=== PATIENT | male | born 1960 | race Caucasian/White ===

== ENCOUNTER 2023-03-20 08:28 | Observation (INO) | payer OTHER, SELFPAY ==
[2023-03-20] VITALS (84 sets, daily range): BP systolic 105–175; BP diastolic 58–107; PULSE 50–95; RESP 2–24; TEMP 36.4–36.8; O2SAT 84–100; BMI 29.9; BMI 31.1
--- NOTE | 2023-03-20 08:36 | ED_ITS ---
HPI - General Adult General Chief complaint: Chest Pain Stated complaint: CHEST PAIN Time Seen by Provider: 03/20/23 08:35 History of Present Illness HPI narrative: Patient is a 63-year-old male who is presenting to the Emergency Room with chief complaint of left-sided chest heaviness, pressure this started in the left parasternal area and radiating across the left side of his chest underneath his left breast. This did not radiate into his neck, jaw, but he did have pain going down his left arm as well. Patient had a heart attack 2 years ago in [place]. Patient had a cardiac catheter with a few stents placed. Patient was in significant. Patient's patient service coordinator is in [place], his PCP is in [place]. Patient does take a blood thinner, he does not know what blood Thinner he takes. Patient does not know his medication list. 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 Patient has no history of blood clots. Patient has no bowel pain, nausea vomiting. Patient does have lower extremity swelling, this is new in the past week. Patient states he is having a hard time putting his boots on. He has no pain in the posterior aspects of his legs, there is little bit more swelling in the left leg than the right but fairly equal. Patient has no fever or chills. Patient quit smoking 2 years ago. Patient is compliant with his medication. Patient was taking a delivery somewhere today, patient was trying to get out of his semitruck. Patient stated that he almost fell, he was having the chest pain, and some weakness in his legs along with the swelling. Patient called 911 and was brought to the Emergency Room from a business where his semitruck tractor- trailer is currently. Patient has not used smoking in the past 2 years. . All systems are negative except as noted/marked. All systems reviewed and otherwise negative. . Nurses note and vital signs reviewed and patient is not hypoxic. General: The patient appears well and in no apparent distress. Patient is resting comfortably on cart. Patient is not toxic, lethargic, or listless Skin: Warm, dry, grayish coloration to skin, pt states this is normal for him. no pallor noted. There is no rash noted. No petechiae, purpura. Head: Normocephalic, atraumatic Eye: Normal conjunctiva, no drainage, EOMI. PERRL Ears, Nose, Mouth, and Throat: oral mucosa is moist. Nares patent. Mouth without vesicles. Cardiovascular: Regular Rate and Rhythm, no murmur, gallop, rub. No reproducible tenderness to palpation to the anterior, lateral, posterior chest wall. Respiratory: Patient is in no distress, no accessory muscle use, lungs are clear to auscultation, no wheezing, rales or rhonchi Back: non-tender, no CVA tenderness bilaterally to percussion. No CT LS midline pain GI: soft, Obese, no tenderness to palpation, no masses appreciated. No rebou nd, guarding, or rigidity noted. No flank pain bilateral, No distention. No midepigastric tenderness to palpation. Musculoskeletal: Patient has full range of motion of all of the extremities, no motor, sensory, or focal neurological deficits. 1+ pitting edema to bilateral lower extremities. Patient has no pain to the posterior aspect of bilateral thighs, popliteal fossa, or calves. Neurological: A&O x3, normal speech Psychiatric: Cooperative Related Data Home Medications Medication Instructions Recorded Confirmed Unobtainable 03/20/23 03/20/23 Allergies Allergy/AdvReac Type Severity Reaction Status Date / Time No Known Drug Allergies Allergy Verified 03/20/23 08:37 [facility] Social History Smoking status: Former smoker Exam Constitutional Vital Signs, click to edit/add: Last Vital Signs Temp 98 F 03/20/23 08:32 Pulse 56 L 03/20/23 10:37 Resp 14 03/20/23 10:37 BP 138/93 H 03/20/23 10:37 Pulse Ox 99 03/20/23 10:37 O2 Del Method Room Air 03/20/23 10:37 Course Vital Signs Vital signs: Vital Signs Temperature 98 F 03/20/23 08:32 Pulse Rate 77 03/20/23 08:32 Respiratory Rate 24 03/20/23 08:32 Blood Pressure 156/83 H 03/20/23 08:32 Pulse Oximetry 98 03/20/23 08:32 Oxygen Delivery Method Room Air 03/20/23 08:32 Temperature 98 F 03/20/23 08:32 Pulse Rate 56 L 03/20/23 10:37 Respiratory Rate 14 03/20/23 10:37 Blood Pressure 138/93 H 03/20/23 10:37 Pulse Oximetry 99 03/20/23 10:37 Oxygen Delivery Method Room Air 03/20/23 10:37 Medical Decision Making MDM Narrative Medical decision making narrative: Patient received 4 baby aspirin and 1 nitroglycerin prior to arrival. Patient's had 2 sets of cardiac enzymes are negative. EKG has showed no acute changes. Patient did have nitro paste placed. Patient will be admitted for observation secondary to his cardiac history, risk factors and his story. Patient has a heart score of 4. 1 point for story, one point for age, 2 points for history. Patient will be admitted for observation. Patient's patient service coordinator is [place], pt PCP is in [place]. Patient 2 sets of troponins, x-ray, lab work showed no acute findings. Patient has been on the playground monitor. The past 4 hours,Patient's had no acute changes. Critical care time 35 minutes exclusive from separate billable procedures that were performed. The following was considered in the determination of critical care but not limited to the level of medical decision making, intensive cardiac and/or respiratory monitoring, frequent vital sign monitoring, evaluation of laboratory studies, evaluation of radiographic studies, oxygen monitoring, and constant monitoring and speaking to family at bedside Lab Data Lab results reviewed: Yes I reviewed the patient's lab results Labs: Lab Results 03/20/23 03/20/23 Range/Units 09:03 10:32 WBC 5.1 (4.0-11.0) 10^3/uL RBC 3.95 L (4.70-6.10) 10^6/uL Hgb 12.3 L (14.0-18.0) g/dL Hct 37.6 L (42.0-54.0) % MCV 95.2 H (80.0-94.0) fL MCH 31.1 (25.9-34.0) pg MCHC 32.7 (29.9-35.2) g/dL RDW 13.3 (11.0-15.0) % Plt Count 151 (150-450) 10^3/uL MPV 11.0 (9.5-13.5) fL Seg Neuts % (Manual) 65.0 Band Neutrophils % 1.0 (0-5) % Lymphocytes % (Manual) 25.0 (20.5-60.0) % Monocytes % (Manual) 6.0 (1.7-12.0) % Eosinophils % (Manual) 3.0 (0.9-7.0) % Basophils % (Manual) 0.0 L (0.2-2.0) % Neutrophils # (Manual) 3.31 (1.4-6.5) 10^3/uL Band Neutrophils # 0.1 (0.0-0.3) 10^3/uL Lymphocytes # (Manual) 1.27 (1.20-3.80) 10^3/uL Monocytes # (Manual) 0.30 (0.30-0.80) 10^3/uL Eosinophils # (Manual) 0.15 (0.00-0.70) 10^3/uL Basophils # (Manual) 0.00 (0.00-0.10) 10^3/uL PT 11.4 (9.0-11.6) sec INR 1.08 Sodium 140 (136-145) mmol/L Potassium 3.4 L (3.5-5.1) mmol/L Chloride 104 (98-107) mmol/L Carbon Dioxide 26.7 (21.0-32.0) mmol/L Anion Gap 12.7 BUN 17.0 (7.0-18.0) mg/dL Creatinine 1.45 H (0.70-1.30) mg/dL Est GFR ( Amer) 60 (>=60) Est GFR (Non-Af Amer) 49 L (>=60) BUN/Creatinine Ratio 11.7 Glucose 109 H (74-106) mg/dL Calcium 8.5 (8.5-10.1) mg/dL Total Bilirubin 0.7 (0.2-1.0) mg/dL AST 72 H (15-37) U/L ALT 76 H (16-63) U/L Alkaline Phosphatase 78 (46-116) U/L Troponin I High Sens 8.1 9.4 (4.0-76.1) pg/mL NT-Pro-B Natriuret Pep 205.0 (<=900.0) pg/mL Total Protein 7.3 (6.4-8.2) g/dL Albumin 4.1 (3.4-5.0) g/dL Globulin 3.2 g/dL Albumin/Globulin Ratio 1.3 Lipase 25.0 (16.0-77.0) U/L ECG Data Attestation: I personally reviewed and interpreted this ECG as follows: (EKG interpretation. Normal sinus rhythm at 71 beats a minute. Normal axis deviation. No acute ST elevation, no acute ectopy. QTC of 361.) Discharge Plan Discharge Chief Complaint: Chest Pain Clinical Impression: Edema, peripheral, Chest pain Patient Disposition: Home, Self-Care Condition: Fair Prescriptions / Home Meds: No Action Unobtainable Stand Alone Forms: Portal Instructions Referrals: Physician,Non-Staff, MD [Primary Care Provider] - 1 week
--- NOTE | 2023-03-20 08:37 | ECG_ITS ---
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
--- NOTE | 2023-03-20 09:00 | CT_ITS ---
The [address] [address] Patient Name: ANTHONY MORTON MRN: [id number] date: 1960 Sex: M Assigned Patient Location: ER Current Patient Location: ER Accession/Order Number: [id number] Exam Date: 03/20/2023 09:57 Report Date: 03/20/2023 10:58 At the request of: BRYAN NEWMAN Procedure: CT angio chest CT angio chest: 03/20/2023 9:57 AM EDT CLINICAL HISTORY: 63 years old Male with sob, cp. TECHNIQUE: CT angio chest was performed with axial CT images through the thorax as well as sagittal, coronal and oblique reformations also obtained after intravenous administration of intravenous contrast. COMPARISON: None FINDINGS: There are no filling defects in the main central pulmonary arteries. The heart is not enlarged. There is no pericardial effusion. No enlarged mediastinal or perihilar lymph nodes are noted. The lungs are clear. There is no pneumothorax or pleural effusion. Small esophageal hiatal hernia. Hepatic cyst. The osseous structures are unremarkable. CT/CT angio chest IMPRESSION: No pulmonary embolus. Electronically authenticated by: ASHLEIGH BAUTISTA Date: 03/20/2023 10:58
--- NOTE | 2023-03-20 09:11 | PC.NURSE ---
States left sided chest pain off and on. Gets up to an [address] berger. Orders obtained.
[2023-03-20] MEDS: NITROGLYCERIN 2% 1 GRAM PACKET 1 GM TD (09:17)
[2023-03-20 09:23] LABS: Hematocrit 37.6 % (42.0-54.0); Hemoglobin 12.3 g/dL (14.0-18.0); Mean Corpuscular HGB Conc 32.7 g/dL (29.9-35.2); Mean Corpuscular Hemoglobin 31.1 pg (25.9-34.0); Mean Corpuscular Volume 95.2 fL (80.0-94.0); Platelet Count 151 10^3/uL (150-450); Red Blood Count 3.95 10^6/uL (4.70-6.10); White Blood Count 5.1 10^3/uL (4.0-11.0)
[2023-03-20 09:26] LABS: Red Cell Distribution Width 13.3 % (11.0-15.0)
[2023-03-20 09:29] LABS: INR 1.08; Prothrombin Time 11.4 sec (9.0-11.6)
[2023-03-20 09:37] LABS: Alanine Aminotransferase 76 U/L (16-63); Albumin Globulin Ratio 1.3; Albumin Level 4.1 g/dL (3.4-5.0); Alkaline Phosphatase 78 U/L (46-116); Anion Gap 12.7; Aspartate Amino Transferase 72 U/L (15-37); BUN Creatinine Ratio 11.7; Bilirubin Total 0.7 mg/dL (0.2-1.0); Calcium 8.5 mg/dL (8.5-10.1); Carbon Dioxide 26.7 mmol/L (21.0-32.0); Chloride 104 mmol/L (98-107); Estimated GFR (African America 60 (>=60); Estimated GFR (Non-African Ame 49 (>=60); Globulin 3.2 g/dL; Glucose 109 mg/dL (74-106); Potassium 3.4 mmol/L (3.5-5.1); Sodium 140 mmol/L (136-145); Total Protein 7.3 g/dL (6.4-8.2); Troponin I High Sensitivity 8.1 pg/mL (4.0-76.1)
[2023-03-20 09:41] LABS: Band Neutrophils Absolute 0.1 10^3/uL (0.0-0.3); Eosinophils Absolute Manual 0.15 10^3/uL (0.00-0.70); Lymphocytes Absolute Manual 1.27 10^3/uL (1.20-3.80); Segmented Neut Absolute Manual 3.31 10^3/uL (1.4-6.5)
[2023-03-20 11:14] LABS: Troponin I High Sensitivity 9.4 pg/mL (4.0-76.1)
--- NOTE | 2023-03-20 14:01 | CA_ITS ---
Patient: ANTHONY MORTON Exam Date: 03/20/2023 : 1960 Gender:M Ordering : GORGE GREER Admission #: [id number] Family : Pablo Cote . Order #: [id number] CLICK HERE TO VIEW EXAM ECHOCARDIOGRAM REPORT PROCEDURE: CA ECHO DOPPLER COMPLETE INDICATIONS: Chest pain, h/o NC - PTCA COMPARISON: None. DESCRIPTION: COMPLETE ECHOCARDIOGRAM Real-time transthoracic echocardiography with 2D, M-mode, spectral and color flow Doppler performed. QUALITY: Technical quality was good. LEFT VENTRICLE: Normal chamber size. Mild concentric left ventricular hypertrophy. Systolic function is difficult to assess but appears to be moderately to severely reduced. There is global hypokinesis. LV EF: Moderately to severely reduced left ventricular ejection fraction, (25-30%). DIASTOLIC: Grade II diastolic dysfunction. ATRIAL SEPTUM: LEFT ATRIUM: Normal chamber size. RIGHT ATRIUM: Normal chamber size. RIGHT VENTRICLE: Normal chamber size. Normal right ventricular systolic function. TRICUSPID VALVE: Normal mobility and thickness. No stenosis with no regurgitation. Unable to assess right-sided pressures due to lack of measurable tricuspid regurgitation. MITRAL VALVE: Normal mobility and thickness. No evidence of mitral valve stenosis. There is no mitral annular calcification. Trivial mitral regurgitation. AORTIC VALVE: Normal trileaflet appearance. No visible sclerosis. Normal leaflet mobility. No evidence of aortic valve stenosis. No aortic regurgitation. AORTIC ROOT: Normal diameter and appearance. PULMONIC VALVE: Normal thickness and mobility. No stenosis. Trivial regurgitation. PERICARDIUM: Trivial pericardial effusion. IVC: Collapses with inspirations. PLEURA: CONCLUSION: 1. Left ventricular systolic function is difficult to assess but appears to be moderately to severely reduced. There is global hypokinesis. LVEF is estimated at 25 to 30%. 2. Normal right ventricular size and systolic function. 3. No significant valvular dysfunction. 4. Unable to assess right-sided pressures due to lack of measurable tricuspid regurgitation. 5. Trivial pericardial effusion. Adult Echocardiography Procedure Report Left Ventricle LVEDD (3.7 - 5.6 cm): 5.18 cm LVESD (2.2 - 4.0 cm): 3.55 cm LVIVS thickness (0.6 - 1.2 cm): 1.29 cm LVPW thickness (0.5 - 1.0 cm): 1.13 cm e': 0.06 m/s E - e': 7.19 LVOT Max Gradient: 0.99 mm[Hg] LVOT Area (cm2): 0.50 m/s Peak Velocity (LVOT): 0.50 m/s LVOT Diameter 2.21 cm Left Atrium LA Volume Index (2D A2C): 28.54 ml/m2 Left Atrium Systolic Dimension: 3.70 cm Mitral Valve MV E to A Ratio: 1.23 Mitral Valve A-Wave Peak Velocity: 0.36 m/s Mitral Valve E-Wave Peak Velocity: 0.44 m/s Right Ventricle Aorta AO Root Diam: 3.30 cm Ascending Ao Diam: 2.87 cm Aortic Valve AoV Area (Peak Man): 2.72 cm2, 2.72 cm2 Peak Velocity(Antegrade Flow): 0.70 m/s Peak Gradient(Antegrade Flow): 1.98 mm[Hg] Tricuspid Valve Pulmonic Valve Peak Velocity: 0.72 m/s Peak Gradient: 2.19 mm[Hg], 1.94 mm[Hg] Right Atrium Right Atrium Systolic Pressure: 37.55 ml, 37.55 ml Dictated by: Mook Lockett M.D. on 03/20/2023 at 17:45 Approved by: Mook Lockett M.D. on 03/20/2023 at 17:49
[2023-03-20 15:57] LABS: Troponin I High Sensitivity 11.2 pg/mL (4.0-76.1)
[2023-03-20] MEDS: NITROGLYCERIN IN 5 % DEXTROSE 50 MG/250 ML INFUS..BTL IV (17:06)
[2023-03-20] MEDS: FUROSEMIDE 40 MG/4 ML VIAL IVP (17:15)
[2023-03-20] MEDS: HEPARIN SODIUM (PORCINE) 5,000 UNIT/ML VIAL 5000 UNIT SUBQ (17:19)
[2023-03-20] MEDS: CARVEDILOL 6.25 MG TABLET PO (17:19)
--- NOTE | 2023-03-20 17:55 | P.HP_ITS ---
Patient seen and examined at 2010 hrs. on 03/20/2023 Charting by nurse practitioner as well as diagnoses and physical examination reviewed. Agree with input with the exception of With his stability and chest pain resolved will DC the nitro drip. Try him on oral nitroglycerin. If that is effective then he can possibly be discharged in the a.m.: H&P: HPI History of Present Illness Chief complaint: CHEST PAIN Narrative: Date/time of exam: 03/20/23 1520 This is a 63-year-old male patient with a past medical history as outlined below including NSTEMI in May 2021 in [facility] with PCI and stent placement, HTN, hypothyroidism, BPH; who presented to the ED complaining of acute chest pain with abrupt onset while at work. The patient reports sudden onset of substernal stabbing, tight chest pain with accompanying dyspnea and shortness of breath. He reports approximately 1 month of increased BLE swelling. He denies any nausea and vomiting, palpitations, abdominal pain, or any other acute complaint. Work-up in the ED included a CTA of the chest and no PE was identified. His EKG showed sinus rhythm with old anterior MT changes. He has mild elevation of his creatinine and decreased EGFR of unknown chronicity. Serial troponins in the ED have been negative x2. BNP was within normal limits at 205. He is being admitted to the hospitalist service in observation under Dr. Cote for further cardiac work up. At the time of my exam the patient is resting comfortably in bed in the ICU. He reports that his chest discomfort has resolved after he received aspirin and nitroglycerin in the ED. He does report faint episodic twinges of the precordial chest wall but is otherwise asymptomatic at this time. He is stable on room air and denies shortness of breath. A 2D echo has already been obtained and this reveals significant HFrEF with an EF of 20 to 25% suspected although final cardiology interpretation is still pending. In addition the patient has significant wall motion abnormalities with minimal apical activity in the inferior and lateral zarate. The patient admits to stopping taking his medications since last August. He does not check his blood pressure at home. He states he quit smoking when he had his MT in and has not taken an alcohol at all since the . The patient and his have been updated on the preliminary results of the 2D echo. He will be initiated on a nitroglycerin drip and be given bolus Lasix dosing. Low threshold to change his admission to an inpatient or transfer to a tertiary care facility pending clinical course as we do not have cardiology available in this facility over the weekend. Review of Systems ROS Status of ROS 10 or more systems reviewed and unremarkable except as noted in history and below [facility] Medical History (Updated 03/20/23 @ 18:07 by Kimi Meneses NP) Bladder spasm ?N32.89 - Other specified disorders of bladder (ICD-10) BPH (benign prostatic hyperplasia) ?N40.0 - Benign prostatic hyperplasia without lower urinary tract symptoms (ICD-10) Former cigarette smoker ?Z87.891 - Personal history of nicotine dependence (ICD-10) Heart attack ?I21.9 - Acute myocardial infarction, unspecified (ICD-10) High cholesterol ?E78.00 - Pure hypercholesterolemia, unspecified (ICD-10) Hypothyroidism ?E03.9 - Hypothyroidism, unspecified (ICD-10) Surgical History (Updated 03/20/23 @ 12:58 by Emily White RN) History of heart artery stent ?Z95.5 - Presence of coronary angioplasty implant and graft (ICD-10) Family History (Updated 03/20/23 @ 13:00 by Emily White RN) Father Family history of CHF (congestive heart failure) Family history of COPD (chronic obstructive pulmonary disease) Family history of cancer Family history of diabetes mellitus Family history of hypertension Family history of myocardial infarction Social History (Updated 03/20/23 @ 13:03 by Emily White RN) Within the past year, how often did you have a drink containing alcohol: never Within the past year, how often did you have six or more drinks on one occasion: never Score interpretation: A score less than 4 is consistent with normal alcohol consumption. Smoking status: Former smoker Non-prescribed substance use: denies use Previous occupational history: armored truck driver Highest level of school completed/degree received: 12th grade, no diploma Are you now , , , , never or living with a partner: In a typical week, how many times do you talk on the telephone with family, friends, or neighbors: 3 or more times per week How often do you get together with friends or relatives: once per week How often do you attend voodoo or taoism services: never Do you belong to any clubs or organizations such as voodoo groups unions, fraternal or athletic groups, or school groups: no Total score: 1 Score interpretation: A score of less than or equal to 1 indicates the most socially isolated. Little interest or pleasure in doing things: not at all Feeling down, depressed, or hopeless: not at all Feel stressed/tense/nervous/anxious/difficulty sleeping: not at all Meds Home Medications and Allergies Home Medications Medication Instructions Recorded Confirmed Type amlodipine 5 mg tablet 5 mg PO DAILY 03/20/23 03/20/23 History atorvastatin 40 mg tablet 80 mg PO QPM 03/20/23 03/20/23 History carvedilol 6.25 mg tablet 6.25 mg PO BID 03/20/23 03/20/23 History famotidine 20 mg tablet 20 mg PO BID 03/20/23 03/20/23 History levothyroxine 137 mcg tablet 137 mcg PO DAILY 03/20/23 03/20/23 History lisinopril 2.5 mg tablet 2.5 mg PO DAILY 03/20/23 03/20/23 History tamsulosin 0.4 mg capsule 0.4 mg PO DAILY 03/20/23 03/20/23 History ticagrelor 60 mg tablet 60 mg PO BID 03/20/23 03/20/23 History Allergies Allergy/AdvReac Type Severity Reaction Status Date / Time No Known Drug Allergies Allergy Verified 03/20/23 08:37 Exam Constitutional Vital Signs, click to edit/add: Last Vital Signs Temp 97.5 F L 03/20/23 13:29 Pulse 62 03/20/23 16:40 Resp 16 03/20/23 16:40 BP 150/93 H 03/20/23 16:00 Pulse Ox 98 03/20/23 17:00 O2 Del Method Room Air 03/20/23 12:28 Common normals: no apparent distress, oriented x3, alert and well nourished General appearance: cooperative Orientation/consciousness: Yes awake HENVA Common normals: normocephalic, head/scalp atraumatic, hearing grossly normal bilaterally, external ears normal, external nose normal and moist oral mucous membranes Head and scalp: normocephalic and atraumatic Face and sinus: normal facial exam Nose: external nose normal External ear: external ears normal Eye Common normals: PERRL, EOMs intact bilaterally, conjunctivae normal and no scleral icterus General eye: normal appearance of both eyes Alignment: alignment normal Eyelid: eyelids normal Conjunctiva: conjunctiva(e) normal Pupil: PERRL Neck & C-Spine Common normals: full ROM, supple and no JVD Chest Common normals: inspection of chest normal Chest: symmetrical chest wall rise Respiratory Common normals: normal respiratory effort, no retractions, no use of accessory muscles and clear to auscultation bilaterally Effort & inspection: able to speak in complete sentences Auscultation: clear to auscultation bilaterally Cardio Common normals: no JVD, regular rate, regular rhythm, S1 normal heart sound, S2 normal heart sound, no gallops, no clicks, no murmurs, no rub and peripheral pulses 2+ throughout Rate: regular rate Rhythm: regular rhythm Heart sounds: S1 normal and S2 normal Peripheral pulses: pulses 2+ throughout GI Common normals: Normal to inspection, nondistended, normoactive bowel sounds present, soft to palpation, non-tender, no hepatosplenomegaly, no masses and no bruits Palpation: soft and no hepatosplenomegaly Bladder/kidney exam: bladder normal to palpation Extremity Common normals: normal capillary refill General: normal exam except as noted; no clubbing and no cyanosis Neuro Barton Coma Scale: GCS not evaluated Common normals: oriented x3, CN's II-XII intact bilaterally, moves all extremities, no focal motor deficits and no sensory deficits noted Sensorium/orientation: awake and alert Speech: speech normal Motor exam: strength 5/5 throughout Psych Common normals: mental status grossly normal, thought process normal, affect normal and activity/motor behavior normal Thought process: normal thought process Results Labs Labs: Short CBC 03/20/23 Range/Units 09:03 WBC 5.1 (4.0-11.0) 10^3/uL Hgb 12.3 L (14.0-18.0) g/dL Hct 37.6 L (42.0-54.0) % Plt Count 151 (150-450) 10^3/uL BMP 03/20/23 09:03 Sodium 140 Potassium 3.4 L Chloride 104 Carbon Dioxide 26.7 BUN 17.0 Creatinine 1.45 H Glucose 109 H Calcium 8.5 Liver Function 03/20/23 Range/Units 09:03 Total Bilirubin 0.7 (0.2-1.0) mg/dL AST 72 H (15-37) U/L ALT 76 H (16-63) U/L Alkaline Phosphatase 78 (46-116) U/L Albumin 4.1 (3.4-5.0) g/dL Pulse Oximetry Attestation: I have reviewed the pertinent pulse oximetry results. Assessment and Plan Assessment and Plan (1) Chest pain: Assessment and Plan: ACUTE * Adm obs * Serial EKG/cardiac enzymes neg for acute ischemic changes at this time * At high risk for recurrent ACS as pt has not been taking his medications as prescribed * See HFrEF * Resume previously prescribed statin, coreg. * Plan to resume amlodipine and lisinopril in AM if BP allows while on NTG gtt * Complete serial cardiac enzymes x 4 * 2D Echo - see HFrEF * repeat EKG in AM (2) Acute HFrEF (heart failure with reduced ejection fraction): Assessment and Plan: ACUTE * Pt reports no known hx of chf even after his recent MT. Never prescribed diuretics before * 1 mo hx of increasing BLE edema * 2D Echo reveals significant WM abnormalities and EF of 20-25% * Suspect uncontrolled HTN at least part etiology of acute reduced LVEF as pt has not taken any cardiac meds since August * Start Lasix 40 mg IVP BID - monitor output, daily weight * Start NTG gtt per facility protocol for reduced cardiac afterload. D/C NTG paste * Consider transfer to tertiary care hospital pending clinical course for specialty cardiac care (3) Hypertensive urgency: Assessment and Plan: ACUTE ON CHRONIC * Resume home Coreg * NTG gtt as above * Plan to resume amlodipine and lisinopril in AM if BP allows while on NTG gtt * PRN IVP hydralazine for uncontrolled HTN despite above measures (4) BPH (benign prostatic hyperplasia): Assessment and Plan: CHRONIC * Continue home tamsulosin (5) Hypothyroidism: Assessment and Plan: CHRONIC * Continue home levothyroxine * TSH in AM to monitor therapeutic status
[2023-03-20 18:10] LABS: Troponin I High Sensitivity 9.6 pg/mL (4.0-76.1)
[2023-03-20] MEDS: FAMOTIDINE 20 MG TABLET PO (20:33)
[2023-03-20] MEDS: ISOSORBIDE MONONITRATE 30 MG TAB.ER.24H PO (20:33)
[2023-03-20 21:00] LABS: Troponin I High Sensitivity 10.5 pg/mL (4.0-76.1)
[2023-03-20] MEDS: ATORVASTATIN CALCIUM 40 MG TABLET 80 MG PO (21:25)
[2023-03-21 00:31] VITALS: BP 114/68; PULSE 51; RESP 16; RESP 18; TEMP 36.6; O2SAT 95
[2023-03-21 02:12] VITALS: PULSE 51
[2023-03-21 04:11] VITALS: PULSE 51; PULSE 53; RESP 16; RESP 18; TEMP 37.1; O2SAT 92
[2023-03-21 04:18] LABS: Basophils Absolute Auto 0.1 10^3/uL (0.0-0.1); Basophils Percent Auto 1.4 % (0.2-2.0); Eosinophils Absolute Auto 0.3 10^3/uL (0.0-0.7); Eosinophils Percent Auto 4.9 % (0.9-7.0); Hematocrit 32.6 % (42.0-54.0); Hemoglobin 10.7 g/dL (14.0-18.0); Immature Granulocytes Abs Auto 0.04 10^3/uL (0.00-0.03); Immature Granulocytes Pct Auto 0.8 % (0.0-0.5); Lymphocytes Absolute Auto 1.5 10^3/uL (1.2-3.8); Lymphocytes Percent Auto 28.3 % (20.5-60.0); Mean Corpuscular HGB Conc 32.8 g/dL (29.9-35.2); Mean Corpuscular Hemoglobin 31.8 pg (25.9-34.0); Mean Corpuscular Volume 96.7 fL (80.0-94.0); Mean Platelet Volume 10.9 fL (9.5-13.5); Monocytes Absolute Auto 0.3 10^3/uL (0.3-0.8); Neutrophils Percent Auto 58.6 % (43.0-75.0); Red Blood Count 3.37 10^6/uL (4.70-6.10); Red Cell Distribution Width 13.8 % (11.0-15.0); White Blood Count 5.2 10^3/uL (4.0-11.0)
[2023-03-21 04:39] LABS: Alanine Aminotransferase 69 U/L (16-63); Albumin Globulin Ratio 1.2; Albumin Level 3.7 g/dL (3.4-5.0); Alkaline Phosphatase 71 U/L (46-116); Anion Gap 9.8; Aspartate Amino Transferase 66 U/L (15-37); BUN Creatinine Ratio 13.1; Bilirubin Total 0.5 mg/dL (0.2-1.0); Calcium 8.7 mg/dL (8.5-10.1); Carbon Dioxide 29.8 mmol/L (21.0-32.0); Chloride 102 mmol/L (98-107); Estimated GFR (African America 46 (>=60); Estimated GFR (Non-African Ame 38 (>=60); Glucose 97 mg/dL (74-106); Potassium 3.6 mmol/L (3.5-5.1); Sodium 138 mmol/L (136-145); Total Protein 6.7 g/dL (6.4-8.2)
[2023-03-21 04:59] LABS: Platelet Count 125 10^3/uL (150-450)
[2023-03-21 05:04] LABS: Magnesium 2.2 mg/dL (1.8-2.4)
--- NOTE | 2023-03-21 06:00 | ECG_ITS ---
[facility] Test Date: 2023-03-21 Pat Name: ANTHONY MORTON Department: Room: [facility] Gender: Male Practice Consultant: : 1960 Requested By: AMARJIT ARIAS Order Number: [id number] Reading MD: AMARJIT ARIAS Measurements Intervals [place] Rate: 52 P: 43 NE: 130 QRS: 46 QRSD: 92 T: 64 QT: 432 QTc: 412 Interpretive Statements 1100 Sinus rhythm 3113 Cannot rule out anterior myocardial infarction, probably old 8102 Low QRS voltage in chest leads 9150 abnormal ECG Compared to ECG 03/20/2023 08:33:13 Low QRS voltage now present Myocardial infarct finding still present Electronically Signed On 03-22-2023 7:00:34 EDT by AMARJIT ARIAS
--- NOTE | 2023-03-21 06:00 | XR_ITS ---
[place] [id number] Patient Name: ANTHONY MORTON MRN: [id number] date: 1960 Sex: M Assigned Patient Location: ICU Current Patient Location: ICU Accession/Order Number: [id number] Exam Date: 03/21/2023 06:20 Report Date: 03/21/2023 09:07 At the request of: GORGE GREER Procedure: XR chest 2V XR chest 2V COMPARISON: 03/20/2023 CT chest CLINICAL HISTORY: CHF TECHNIQUE: 2 views FINDINGS: There is a normal cardiac and mediastinal contour. The pulmonary vascular pattern is normal. The lungs are clear and the pleural margins are sharp. There are no significant skeletal abnormalities. XR/XR chest 2V IMPRESSION: NO ACUTE RADIOGRAPHIC FINDINGS. Electronically authenticated by: JUAN PABLO BOYER Date: 03/21/2023 09:07
[2023-03-21] MEDS: FUROSEMIDE 40 MG/4 ML VIAL IVP (06:35)
[2023-03-21] MEDS: HEPARIN SODIUM (PORCINE) 5,000 UNIT/ML VIAL 5000 UNIT SUBQ (06:35)
[2023-03-21] MEDS: LEVOTHYROXINE SODIUM 112 MCG TABLET PO (06:36)
[2023-03-21] MEDS: LEVOTHYROXINE SODIUM 25 MCG TABLET PO (06:36)
[2023-03-21 06:45] VITALS: PULSE 63
[2023-03-21 08:00] VITALS: BP 111/76; PULSE 56; RESP 16; TEMP 36.8; O2SAT 96
[2023-03-21] MEDS: ISOSORBIDE MONONITRATE 30 MG TAB.ER.24H PO (08:15)
[2023-03-21] MEDS: TAMSULOSIN HCL 0.4 MG CAPSULE PO (08:15)
[2023-03-21] MEDS: CARVEDILOL 6.25 MG TABLET PO (08:16)
[2023-03-21] MEDS: FAMOTIDINE 20 MG TABLET PO (08:16)
[2023-03-21 09:56] VITALS: PULSE 58
--- NOTE | 2023-03-21 11:03 | P.DS_ITS ---
DS: Providers Provider Date of admission: 03/20/23 12:18 Primary care physician: Non-Staff Physician, DS: Diagnosis Discharge Diagnosis (1) Chest pain: (2) Acute HFrEF (heart failure with reduced ejection fraction): (3) Hypertensive urgency: (4) BPH (benign prostatic hyperplasia): (5) Hypothyroidism: DS: Summary Hospital Course Hospital Course: Patient presented to the emergency room with increasing chest pain, pressure type with shortness of breath. This was similar to his pain he had when he had his previous SC earlier this year. Cardiac work-up overnight shows no elevation in his troponin. He was placed on long-acting nitroglycerin with in addition to his current medications that he has stopped taking approximately 5 or 6 months ago. With addition of his rate medications plus the Imdur he is stable currently. He does have a limited ejection fraction of 20 to 25% on echocardiogram. With ambulating symptom-free he will be discharged home in improving condition. Medications see list. Follow-up with his PCP. Significant hypothyroidism. All medications were represcribed and sent to his pharmacy of his choice. Encouraged needs to continue to take these medications for the rest of his life Time Spent with Patient Time attestation: Total time spent providing and/or coordinating discharge services: Exam Constitutional Vital Signs, click to edit/add: Last Vital Signs Temp 98.2 F 03/21/23 08:00 Pulse 58 L 03/21/23 09:56 Resp 16 03/21/23 08:00 BP 111/76 03/21/23 08:00 Pulse Ox 96 03/21/23 08:00 O2 Del Method Room Air 03/21/23 08:00 Common normals: no apparent distress, oriented x3, alert and well nourished General appearance: cooperative Orientation/consciousness: Yes awake [facility] Common normals: normocephalic, head/scalp atraumatic, hearing grossly normal bilaterally, external ears normal, external nose normal and moist oral mucous membranes Head and scalp: normocephalic and atraumatic Face and sinus: normal facial exam Nose: external nose normal External ear: external ears normal Eye Common normals: PERRL, EOMs intact bilaterally, conjunctivae normal and no scleral icterus General eye: normal appearance of both eyes Alignment: alignment normal Eyelid: eyelids normal Conjunctiva: conjunctiva(e) normal Pupil: PERRL Neck & C-Spine Common normals: full ROM, supple and no JVD Chest Common normals: inspection of chest normal Chest: symmetrical chest wall rise Respiratory Common normals: normal respiratory effort, no retractions, no use of accessory muscles and clear to auscultation bilaterally Effort & inspection: able to speak in complete sentences Auscultation: clear to auscultation bilaterally Cardio Common normals: no JVD, regular rate, regular rhythm, S1 normal heart sound, S2 normal heart sound, no gallops, no clicks, no murmurs, no rub and peripheral pulses 2+ throughout Rate: regular rate Rhythm: regular rhythm Heart sounds: S1 normal and S2 normal Peripheral pulses: pulses 2+ throughout GI Common normals: Normal to inspection, nondistended, normoactive bowel sounds present, soft to palpation, non-tender, no hepatosplenomegaly, no masses and no bruits Palpation: soft and no hepatosplenomegaly Bladder/kidney exam: bladder normal to palpation Extremity Common normals: normal capillary refill General: normal exam except as noted; no clubbing and no cyanosis Neuro Villard Coma Scale: GCS not evaluated Common normals: oriented x3, CN's II-XII intact bilaterally, moves all extremities, no focal motor deficits and no sensory deficits noted Sensorium/orientation: awake and alert Speech: speech normal Motor exam: strength 5/5 throughout Psych Common normals: mental status grossly normal, thought process normal, affect normal and activity/motor behavior normal Thought process: normal thought process DS: Data Data Completed and Pending Labs on day of discharge: Labs from last 24 hours 03/21/23 03/20/23 03/20/23 04:09 20:27 17:40 WBC 5.2 RBC 3.37 L Hgb 10.7 L Hct 32.6 L MCV 96.7 H MCH 31.8 MCHC 32.8 RDW 13.8 Plt Count 125 L MPV 10.9 Neut % (Auto) 58.6 Lymph % (Auto) 28.3 Mills % (Auto) 6.0 Eos % (Auto) 4.9 Baso % (Auto) 1.4 Neut # (Auto) 3.0 Lymph # (Auto) 1.5 Mills # (Auto) 0.3 Eos # (Auto) 0.3 Baso # (Auto) 0.1 Abs Immat Gran (auto) 0.04 H Imm/Tot Granulo (auto) 0.8 H Sodium 138 Potassium 3.6 Chloride 102 Carbon Dioxide 29.8 Anion Gap 9.8 BUN 24.0 H Creatinine 1.83 H Est GFR ( Amer) 46 L Est GFR (Non-Af Amer) 38 L BUN/Creatinine Ratio 13.1 Glucose 97 Calcium 8.7 Magnesium 2.2 Total Bilirubin 0.5 AST 66 H ALT 69 H Alkaline Phosphatase 71 Troponin I High Sens 10.5 9.6 NT-Pro-B Natriuret Pep 276.0 Total Protein 6.7 Albumin 3.7 Globulin 3.0 Albumin/Globulin Ratio 1.2 TSH 274.274 H 03/20/23 03/20/23 14:34 10:32 WBC RBC Hgb Hct MCV MCH MCHC RDW Plt Count MPV Neut % (Auto) Lymph % (Auto) Mills % (Auto) Eos % (Auto) Baso % (Auto) Neut # (Auto) Lymph # (Auto) Mills # (Auto) Eos # (Auto) Baso # (Auto) Abs Immat Gran (auto) Imm/Tot Granulo (auto) Sodium Potassium Chloride Carbon Dioxide Anion Gap BUN Creatinine Est GFR ( Amer) Est GFR (Non-Af Amer) BUN/Creatinine Ratio Glucose Calcium Magnesium Total Bilirubin AST ALT Alkaline Phosphatase Troponin I High Sens 11.2 9.4 NT-Pro-B Natriuret Pep Total Protein Albumin Globulin Albumin/Globulin Ratio TSH Discharge Plan Discharge Disposition: Home, Self-Care Condition: Fair Discharge Medications: New atorvastatin 40 mg Tablet 80 mg PO QHS Qty: 30 11RF carvedilol 6.25 mg Tablet 6.25 mg PO BID@0800,1800 Qty: 60 11RF isosorbide mononitrate 30 mg Tablet Extended Release 24 Hr 30 mg PO QD Qty: 30 11RF famotidine 20 mg Tablet 20 mg PO BID Qty: 60 11RF tamsulosin 0.4 mg Capsule 0.4 mg PO DAILY Qty: 30 11RF lisinopril 5 mg Tablet 5 mg PO DAILY Qty: 30 11RF ticagrelor 60 mg Tablet 60 mg PO BID Qty: 60 11RF Continued amlodipine 5 mg tablet 5 mg PO DAILY tamsulosin 0.4 mg capsule 0.4 mg PO DAILY ticagrelor 60 mg tablet 60 mg PO BID famotidine 20 mg tablet 20 mg PO BID atorvastatin 40 mg tablet 80 mg PO QPM carvedilol 6.25 mg tablet 6.25 mg PO BID Rx Instructions: must administer with a meal/food lisinopril 2.5 mg tablet 2.5 mg PO DAILY levothyroxine 137 mcg tablet 137 mcg PO DAILY Qty: 30 11RF Activity: resume usual activities as tolerated Patient Instructions: Lisinopril (By mouth), Famotidine (By mouth), Isosorbide Mononitrate (By mouth), Tamsulosin (By mouth), Carvedilol (By mouth), Ticagrelor (By mouth), Chest Pain (GEN) Forms: Portal Instructions Follow Up Appointments: Follow up with Dr Dave Plunkett next week. [phone]. Call to make appointment on ThursdayMar 23 Discharge Date/Time: 03/21/23 11:38
--- NOTE | 2023-03-23 14:04 | CM.DCFOLLOWU ---
Person spoke with: patient How are you feeling? well How is your pain? no pain for most part, only when he bends over Did you understand your discharge instructions? yes Do you have any questions about your discharge instructions? no Were you given any prescriptions at discharge? yes Were you able to get your prescriptions filled? yes Do you understand how to take your medications as ordered? yes Do you have any questions about your follow up appointment and do you plan to keep your follow up appointment? no questions, follow up scheduled 03/31/23 Is there anything else that you would like to discuss? no Questions/Comments/Concerns/Other:
== END 2023-03-21 11:38 | disposition home or self-care (01) ==
LOC: ER 12:22 → ICU 12:23
PROVIDERS: Admitting Provider Family Medicine; Emergency Provider Emergency Medicine; Visit Provider Nurse Practitioner
DX: I11.0 Hypertensive heart disease with heart failure (principal); I50.21 Acute systolic (congestive) heart failure; R07.9 Chest pain, unspecified; I16.0 Hypertensive urgency; E03.9 Hypothyroidism, unspecified; N40.0 Benign prostatic hyperplasia without lower urinary tract symptoms; E78.00 Pure hypercholesterolemia, unspecified; Z79.899 Other long term (current) drug therapy; Z79.890 Hormone replacement therapy; I25.2 Old myocardial infarction; Z95.5 Presence of coronary angioplasty implant and graft; Z79.01 Long term (current) use of anticoagulants; Z87.891 Personal history of nicotine dependence
CPT/HCPCS: 36415; 71046; 71275; 80053; 83690; 83735; 83880; 84443; 84484; 85025; 85027; 85610; 93005; 93306; 94761; 96365; 96366; 96372; 96375; 96376; 99285; G0378; Q9967